=== PATIENT | female | born 1950 | race Two or more races ===

== ENCOUNTER 2017-10-08 17:22 | Observation (INO) | payer SELFPAY ==
--- NOTE | 2017-10-08 17:29 | PDOC ---
Rapid Medical Evaluation Time Seen by Provider: 10/08/17 17:29 Medical Evaluation: 10/08/17 17:29 66 year old female with NIDDM, HTN, and asthma presents with 3 weeks of progressive dyspnea, cough productive of yellow sputum, dizziness, and generalized weakness. V/s notable for SpO2 92% on RA, HR 107. Alert, oriented. Diffuse expiratory wheezing with poor air entry bilaterally. Coughing during exam. RRR, S1/S2. -EKG -CXR -Sepsis labs -DuoNeb -To Main ED for further evaluation
[2017-10-08 17:33] VITALS: BMI 23.4
[2017-10-08] MEDS ORDERED: ALBUTEROL SO4 2.5/IPRATROPIUM 0.5 INH SOL 3 ML VIAL.NEB. NEB ONE ×2 (17:34→19:06)
[2017-10-08 19:21] LABS: BASO % 0.6 % (0-2.0); EOS % 6.3 % (0-4.5); HEMATOCRIT 41.2 % (32.4-45.2); HEMOGLOBIN 13.8 GM/dL (10.7-15.3); LYMPH % 25.3 % (8-40); MCH 30.1 pg (25.7-33.7); MCHC 33.4 g/dl (32.0-36.0); MEAN CELL VOLUME 90.3 fl (80-96); MEAN PLT VOLUME 7.6 fl (7.5-11.1); MONO % 7.4 % (3.8-10.2); NEUT % 60.4 % (42.8-82.8); PLATELET COUNT 269 K/MM3 (134-434); RBC 4.57 M/mm3 (3.60-5.2); RDW 13.6 % (11.6-15.6); WHITE BLOOD COUNT 10.5 K/mm3 (4.0-10.0)
[2017-10-08 19:34] LABS: URINE APPEARANCE CLEAR; URINE BILIRUBIN NEGATIVE (<2.0 mg/dL); URINE COLOR STRAW; URINE GLUCOSE (UA) NEGATIVE (NEGATIVE); URINE KETONE NEGATIVE (NEGATIVE); URINE NITRITE NEGATIVE (NEGATIVE); URINE PROTEIN NEGATIVE (NEGATIVE); URINE UROBILINOGEN NEGATIVE mg/dL (0.2-1.0)
[2017-10-08 19:36] LABS: URINE LEUK ESTERASE 1+ (NEGATIVE)
[2017-10-08 19:38] LABS: EPI CELLS RARE /HPF (FEW)
[2017-10-08 19:47] LABS: PROTHROMBIN TIME (PATIENT) 11.3 SEC (9.7-13.0)
[2017-10-08 19:49] LABS: ACTIVATED PTT 33.7 SECONDS (26.9-34.4)
[2017-10-08 20:02] LABS: ALBUMIN 4.1 g/dl (3.4-5.0); ANION GAP 7 (8-16); BLOOD UREA NITROGEN 8 mg/dL (7-18); CALCIUM 9.2 mg/dL (8.5-10.1); CHLORIDE 104 mmol/L (98-107); CO2 29 mmol/L (21-32); CREATININE 0.6 mg/dL (0.55-1.02); GLUCOSE,RANDOM 112 mg/dL (74-106); SGPT/ALT 24 U/L (12-78); SODIUM 140 mmol/L (136-145)
[2017-10-08 20:04] LABS: ALK PHOS 94 U/L (45-117); BILIRUBIN,TOTAL 0.8 mg/dL (0.2-1.0); TOT PROT 8.1 g/dl (6.4-8.2)
[2017-10-08 20:07] LABS: POTASSIUM 4.1 mmol/L (3.5-5.1); SGOT/AST 19 U/L (15-37)
--- NOTE | 2017-10-08 23:34 | PDOC ---
History of Present Illness <Abdiel Bowman - Last Filed: 10/08/17 23:49> - History of Present Illness Initial Comments: 10/08/17 23:45 The patient is a 66 year old female with a significant PMH of diabetes and HTN ( on Jude 5/20mg)who presents to the emergency department with persistent cough and shortness of breath beginning approximately 2 weeks ago. The patient reports having progressively increasing shortness of breath which is aggravated by cough and with associated dyspnea on exertion such as walking or going up stairs. She also reports associated chest pain and back pain which is aggravated by cough and exertion. They report bringing the patient in today as her shortness of breath has been worsening. The patients daughter states the patient recently arrived from [facility] about 6 weeks ago. The patient denies headache and dizziness. Denies fevers, chills, nausea, vomit, diarrhea, and constipation. Denies dysuria, frequency, urgency, and hematuria. Allergies: NKA Past surgical history: None reported. Social history: No reported cigarette, alcohol, or drug use. PCP: None reported. <Sherry Chamorro - Last Filed: 10/09/17 01:19> - General Chief Complaint: Shortness of Breath Stated Complaint: SHORTNESS OF BREATH Time Seen by Provider: 10/08/17 17:29 Past History <Abdiel Bowman - Last Filed: 10/08/17 23:49> - Suicide/Smoking/Psychosocial Hx Smoking History: Never smoked <Sherry Chamorro - Last Filed: 10/09/17 01:19> - Past Medical History Allergies/Adverse Reactions: Allergies Allergy/AdvReac Type Severity Reaction Status Date / Time No Known Allergies Allergy Verified 10/08/17 17:29 Review of Systems - Review of Systems Comments:: 10/08/17 23:45 GENERAL/CONSTITUTIONAL: No fever or chills. No weakness. HEAD, EYES, EARS, NOSE AND THROAT: No change in vision. No ear pain or discharge. No sore throat. GASTROINTESTINAL: No nausea, vomiting, diarrhea or constipation. GENITOURINARY: No dysuria, frequency, or change in urination. CARDIOVASCULAR: (+) Chest pain. RESPIRATORY: (+) Shortness of breath. (+) Cough. No wheezing, or hemoptysis. MUSCULOSKELETAL: (+) Back pain. No joint pain. No neck pain. SKIN: No rash NEUROLOGIC: No headache, vertigo, loss of consciousness, or change in strength/ sensation. ENDOCRINE: No increased thirst. No abnormal weight change. HEMATOLOGIC/LYMPHATIC: No anemia, easy bleeding, or history of blood clots. ALLERGIC/IMMUNOLOGIC: No hives or skin allergy. <AshtynYomna - Last Filed: 10/09/17 01:19> *Physical Exam - Vital Signs Last Vital Signs Temp Pulse Resp BP Pulse Ox 98.5 F 109 H 20 148/84 94 L 10/08/17 17:29 10/08/17 17:29 10/08/17 17:29 10/08/17 17:29 10/08/17 17:29 <Abdiel Bowman - Last Filed: 10/08/17 23:49> - Vital Signs Last Vital Signs Temp Pulse Resp BP Pulse Ox 98.5 F 109 H 20 148/84 94 L 10/08/17 17:29 10/08/17 17:29 10/08/17 17:29 10/08/17 17:29 10/08/17 17:29 - Physical Exam Comments: 10/08/17 23:45 GENERAL: Awake, alert, and fully oriented, in no acute distress HEAD: No signs of trauma EYES: PERRLA, EOMI, sclera anicteric, conjunctiva clear ENT: Auricles normal inspection, hearing grossly normal, nares patent, oropharynx clear without exudates. Moist mucosa NECK: Normal ROM, supple, no lymphadenopathy, JVD, or masses LUNGS: Breath sounds equal, +course BS, no wheezes, and no crackles HEART: Regular rate and rhythm, normal S1 and S2, no murmurs, rubs or gallops ABDOMEN: Soft, nontender, normoactive bowel sounds. No guarding, no rebound. No masses EXTREMITIES: Normal range of motion, no edema. No clubbing or cyanosis. No cords , erythema, or tenderness BACK: No midline spinal tenderness in cervical/thoracic/lumbar region NEUROLOGICAL: Normal speech, cranial nerves intact, negative pronator drift, 5/ 5 strength in all 4 extremities, normal sensation to light touch in all 4 extremities, normal cerebellar exam, normal gait, normal reflexes and tone SKIN: Warm, Dry, normal turgor, no rashes or lesions noted. <AshtynYomna - Last Filed: 10/09/17 01:19> Moderate Sedation - Procedure Monitoring Vital Signs: Vital Signs Temp Pulse Resp BP Pulse Ox 98.5 F 109 H 20 148/84 94 L 10/08/17 17:29 10/08/17 17:29 10/08/17 17:29 10/08/17 17:29 10/08/17 17:29 <Abdiel Bowman - Last Filed: 10/08/17 23:49> - Procedure Monitoring Vital Signs: Vital Signs Temp Pulse Resp BP Pulse Ox 98.5 F 109 H 20 148/84 94 L 10/08/17 17:29 10/08/17 17:29 10/08/17 17:29 10/08/17 17:29 10/08/17 17:29 <Sherry Chamorro - Last Filed: 10/09/17 01:19> ED Treatment Course - LABORATORY CBC & Chemistry Diagram: 10/08/17 19:02 10/08/17 19:02 - ADDITIONAL ORDERS Additional order review: Laboratory Results 10/08/17 10/08/17 10/08/17 19:15 19:02 19:02 PT with INR INR PTT (Actin FS) Sodium Potassium Chloride Carbon Dioxide Anion Gap BUN Creatinine Creat Clearance w eGFR Random Glucose Lactic Acid 1.2 Calcium Total Bilirubin AST ALT Alkaline Phosphatase Troponin I < 0.02 Total Protein Albumin Urine Color Straw Urine Appearance Clear Urine pH 8.0 Ur Specific [place] 1.008 Urine Protein Negative Urine Glucose (UA) Negative Urine Ketones Negative Urine Blood Negative Urine Nitrite Negative Urine Bilirubin Negative Urine Urobilinogen Negative Ur Leukocyte Esterase 1+ H Urine WBC (Auto) 2 Urine RBC (Auto) <1 Ur Epithelial Cells Rare 10/08/17 10/08/17 19:02 19:02 PT with INR 11.30 INR 1.00 PTT (Actin FS) 33.7 Sodium 140 Potassium 4.1 Chloride 104 Carbon Dioxide 29 Anion Gap 7 L BUN 8 Creatinine 0.6 Creat Clearance w eGFR > 60 Random Glucose 112 H Lactic Acid Calcium 9.2 Total Bilirubin 0.8 AST 19 ALT 24 Alkaline Phosphatase 94 Troponin I Total Protein 8.1 Albumin 4.1 Urine Color Urine Appearance Urine pH Ur Specific [place] Urine Protein Urine Glucose (UA) Urine Ketones Urine Blood Urine Nitrite Urine Bilirubin Urine Urobilinogen Ur Leukocyte Esterase Urine WBC (Auto) Urine RBC (Auto) Ur Epithelial Cells 10/08/17 19:02 RBC 4.57 MCV 90.3 MCHC 33.4 RDW 13.6 MPV 7.6 Neutrophils % 60.4 Lymphocytes % 25.3 Monocytes % 7.4 Eosinophils % 6.3 H Basophils % 0.6 - Medications Given in the ED: ED Medications Discontinued Medications Generic Name Dose Route Start Last Admin Trade Name Freq PRN Reason Stop Dose Admin Albuterol/Ipratropium 1 amp 10/08/17 17:34 10/08/17 19:15 Duoneb - NEB 10/08/17 17:35 1 amp ONCE ONE Administration <Abdiel Bowman - Last Filed: 10/08/17 23:49> - LABORATORY CBC & Chemistry Diagram: 10/08/17 19:02 10/08/17 19:02 - ADDITIONAL ORDERS Additional order review: Laboratory Results 10/08/17 10/08/17 10/08/17 19:15 19:02 19:02 PT with INR INR PTT (Actin FS) Sodium Potassium Chloride Carbon Dioxide Anion Gap BUN Creatinine Creat Clearance w eGFR Random Glucose Lactic Acid 1.2 Calcium Total Bilirubin AST ALT Alkaline Phosphatase Troponin I < 0.02 Total Protein Albumin Urine Color Straw Urine Appearance Clear Urine pH 8.0 Ur Specific [place] 1.008 Urine Protein Negative Urine Glucose (UA) Negative Urine Ketones Negative Urine Blood Negative Urine Nitrite Negative Urine Bilirubin Negative Urine Urobilinogen Negative Ur Leukocyte Esterase 1+ H Urine WBC (Auto) 2 Urine RBC (Auto) <1 Ur Epithelial Cells Rare 10/08/17 10/08/17 19:02 19:02 PT with INR 11.30 INR 1.00 PTT (Actin FS) 33.7 Sodium 140 Potassium 4.1 Chloride 104 Carbon Dioxide 29 Anion Gap 7 L BUN 8 Creatinine 0.6 Creat Clearance w eGFR > 60 Random Glucose 112 H Lactic Acid Calcium 9.2 Total Bilirubin 0.8 AST 19 ALT 24 Alkaline Phosphatase 94 Troponin I Total Protein 8.1 Albumin 4.1 Urine Color Urine Appearance Urine pH Ur Specific [place] Urine Protein Urine Glucose (UA) Urine Ketones Urine Blood Urine Nitrite Urine Bilirubin Urine Urobilinogen Ur Leukocyte Esterase Urine WBC (Auto) Urine RBC (Auto) Ur Epithelial Cells 10/08/17 19:02 RBC 4.57 MCV 90.3 MCHC 33.4 RDW 13.6 MPV 7.6 Neutrophils % 60.4 Lymphocytes % 25.3 Monocytes % 7.4 Eosinophils % 6.3 H Basophils % 0.6 - Medications Given in the ED: ED Medications Discontinued Medications Generic Name Dose Route Start Last Admin Trade Name Benjamin PRN Reason Stop Dose Admin Albuterol/Ipratropium 1 amp 10/08/17 17:34 10/08/17 19:15 Duoneb - NEB 10/08/17 17:35 1 amp ONCE ONE Administration <Sherry Chamorro - Last Filed: 10/09/17 01:19> Medical Decision Making - Medical Decision Making 10/08/17 23:40 66yo F hx asthma, HTN, DM presents with progressive sob, scott, chest pain for 2 weeks, worse today. Pt initially was wheezing per E provider, on my exam, no wheezing but some course BS. Vitals with tachycardia, some hypoxia. Pt continues to c/o sob and CP despite neb. Thus far trop neg, remainder labs neg, but dimer, bnp, vbg, xr pending. Will redose nebs, give steroids and reassess. Given prolonged LOS, will ED obs pt. 10/09/17 01:15 dimer, trop, bnp, vbg pending. Pt signed out to hospitalist as LOS >8hrs Case discussed in detail with admitting physician including history, physical exam and ancillary studies. Admitting physician has assumed care for the patient, will follow all pending diagnostics and will complete the evaluation and treatment. <Sherry Chamorro - Last Filed: 10/09/17 01:19> *DC/Admit/Observation/Transfer - Attestations Scribe Attestion: 10/08/17 23:49 Documentation prepared by Abdiel Bowman, acting as medical office professional instructor for Sherry Chamorro MD. <Abdiel Bowman - Last Filed: 10/08/17 23:49> - Discharge Dispostion Decision to Admit order: Yes - Attestations Physician Attestion: 10/09/17 01:19 I, Dr. Sherry Chamorro MD, attest that this document has been prepared under my direction and personally reviewed by me in its entirety. I further attest, that it accurately reflects all work, treatment, procedures and medical decision -making performed by me. <Sherry Chamorro - Last Filed: 10/09/17 01:19> Diagnosis at time of Disposition: Shortness of breath - Discharge Dispostion Condition at time of disposition: Stable
[2017-10-08] MEDS ORDERED: predniSONE 20 MG TABLET (UD) PO ONE (23:36)
--- NOTE | 2017-10-09 01:12 | PN ---
Teaching Attending Note Name of Resident: Lissette Nixon ATTENDING PHYSICIAN STATEMENT I saw and evaluated the patient. I reviewed the resident's note and discussed the case with the resident. I agree with the resident's findings and plan as documented. SUBJECTIVE: Patient is a 66 year old woman with the chief complaint of SOB and cough for 2 weeks. She recently came from [facility]. Has PMH of diabetes and HTN (on Jude 5/20mg). The patient reports having progressively increasing shortness of breath which is aggravated by cough and with associated dyspnea on exertion such as walking or going up stairs. She also reports associated chest pain and back pain which is aggravated by cough and exertion. On arrival in the ER she was treated with bronchodilators and steroids fro asthma exacerbation and kept to rule out Pulmonary embolism. OBJECTIVE: Alert and in no acute respiratory distress. Obese. Vital Signs Period Temp Pulse Resp BP Sys/Berkowitz Pulse Ox Last 24 Hr 98.5 F 109 20 148/84 94 HEENT: No Jaundice, eye redness or discharge, PERRLA, EOMI. External ears are normal and hearing is grossly intact. No nasal discharge. Neck: Supple, nontender. No palpable adenopathy or thyromegaly. No JVD Chest: Good effort. No wheezing. Clear to auscultation and percussion. Heart: Regular. No S3, rub or murmur Abdomen: Not distended, soft, nontender and no HSM. No rebound or guarding. Normoactive bowel sounds. Ext: Peripheral pulses intact. No leg edema. No calf tenderness. Skin: Warm and dry. No petechiae, rash or ecchymosis. Neuro: Alert. Oriented x3. CN 2-12 grossly intact. Sensation grossly intact in all four extremities and DTR are symmetric. Laboratory Results - last 24 hr 10/08/17 10/08/17 10/08/17 19:02 19:02 19:02 WBC 10.5 H RBC 4.57 Hgb 13.8 Hct 41.2 MCV 90.3 MCH 30.1 MCHC 33.4 RDW 13.6 Plt Count 269 MPV 7.6 Neutrophils % 60.4 Lymphocytes % 25.3 Monocytes % 7.4 Eosinophils % 6.3 H Basophils % 0.6 Nucleated RBC % 0 PT with INR 11.30 INR 1.00 PTT (Actin FS) 33.7 Sodium 140 Potassium 4.1 Chloride 104 Carbon Dioxide 29 Anion Gap 7 L BUN 8 Creatinine 0.6 Creat Clearance w eGFR > 60 Random Glucose 112 H Lactic Acid Calcium 9.2 Total Bilirubin 0.8 AST 19 ALT 24 Alkaline Phosphatase 94 Troponin I Total Protein 8.1 Albumin 4.1 Urine Color Urine Appearance Urine pH Ur Specific [place] Urine Protein Urine Glucose (UA) Urine Ketones Urine Blood Urine Nitrite Urine Bilirubin Urine Urobilinogen Ur Leukocyte Esterase Urine WBC (Auto) Urine RBC (Auto) Ur Epithelial Cells 10/08/17 10/08/17 10/08/17 19:02 19:02 19:15 WBC RBC Hgb Hct MCV MCH MCHC RDW Plt Count MPV Neutrophils % Lymphocytes % Monocytes % Eosinophils % Basophils % Nucleated RBC % PT with INR INR PTT (Actin FS) Sodium Potassium Chloride Carbon Dioxide Anion Gap BUN Creatinine Creat Clearance w eGFR Random Glucose Lactic Acid 1.2 Calcium Total Bilirubin AST ALT Alkaline Phosphatase Troponin I < 0.02 Total Protein Albumin Urine Color Straw Urine Appearance Clear Urine pH 8.0 Ur Specific [place] 1.008 Urine Protein Negative Urine Glucose (UA) Negative Urine Ketones Negative Urine Blood Negative Urine Nitrite Negative Urine Bilirubin Negative Urine Urobilinogen Negative Ur Leukocyte Esterase 1+ H Urine WBC (Auto) 2 Urine RBC (Auto) <1 Ur Epithelial Cells Rare ASSESSMENT AND PLAN: 1. Rule out PE - [place] concern is whether she has PE or chest infection in view of her recent trip to [facility]. CXR does not show any significant infiltrate. D-dimer and ABG pending. Will get CTPA. 2. HTn - Treat with amlodipine and losartan. 3. DM - Will do sliding scale insulin coverage and get HBA1c 4. DVT prophylaxis - Heparin 5000u sq tid 5. Advance directives - Full code
--- NOTE | 2017-10-09 01:36 | HP ---
CHIEF COMPLAINT: shortness of breath PCP: none HISTORY OF PRESENT ILLNESS: 66yo Vietnamese speaking woman from [facility] with PMH of HTN and DM who presents to the ED with sob and progressively worse non-productive cough for the past 2 weeks. She recently arrived from [facility] about 6 weeks ago. For the past two weeks she has had worsening sob with exertion. Also endorses chest pain that is aggravated by her coughing. Denies fever, chills, nausea, vomiting. No dysuria, hematuria, frequency, or urgency. ED course was notable for: (1) VS: 98.5, HR 109, BP 148.84, RR 20, pSaO2 94% on RA (2) s/p 1x Duo Neb and Prednisone 60mg PO (3) D-Dimer 404 Recent Travel: came to [place] from [facility] in August 2016 PAST MEDICAL HISTORY: see HPI PAST SURGICAL HISTORY: none Social History: Smoking:never Alcohol: none Drugs: none Family History: Allergies: No Known Allergies Allergy (Verified 10/08/17 17:29) HOME MEDICATIONS: none REVIEW OF SYSTEMS CONSTITUTIONAL: Absent: fever, chills, diaphoresis, generalized weakness, malaise, loss of appetite, weight change HEENT: Absent: rhinorrhea, nasal congestion, throat pain, throat swelling, difficulty swallowing, mouth swelling, ear pain, eye pain, visual changes CARDIOVASCULAR: +chest pain Absent: , syncope, palpitations, irregular heart rate, lightheadedness, peripheral edema RESPIRATORY: +cough, shortness of breath, dyspnea with exertion Absent: orthopnea, wheezing, stridor, hemoptysis GASTROINTESTINAL: Absent: abdominal pain, abdominal distension, nausea, vomiting, diarrhea, constipation, melena, hematochezia GENITOURINARY: Absent: dysuria, frequency, urgency, hesitancy, hematuria, flank pain, genital pain MUSCULOSKELETAL: Absent: myalgia, arthralgia, joint swelling, back pain, neck pain SKIN: Absent: rash, itching, pallor HEMATOLOGIC/IMMUNOLOGIC: Absent: easy bleeding, easy bruising, lymphadenopathy, frequent infections ENDOCRINE: Absent: unexplained weight gain, unexplained weight loss, heat intolerance, cold intolerance NEUROLOGIC: Absent: headache, focal weakness or paresthesias, dizziness, unsteady gait, seizure, mental status changes, bladder or bowel incontinence PSYCHIATRIC: Absent: anxiety, depression, suicidal or homicidal ideation, hallucinations. PHYSICAL EXAMINATION Vital Signs - 24 hr 10/08/17 17:29 Temperature 98.5 F Pulse Rate 109 H Respiratory 20 Rate Blood Pressure 148/84 O2 Sat by Pulse 94 L Oximetry (%) GENERAL: aaox3, nad, without conversational dyspnea HEENT: PERRL, EOMI, sclera anicteric, conjunctiva clear, oropharynx clear without exudates, mmm NECK: supple, no cervical LAD LUNGS: good +airway entry, no wheezing/rales/rhonchi, no accessory muscle use HEART: RRR, normal s1/s2 ABDOMEN: soft, obese, NTND UPPER EXTREMITIES: 2+ radial pulses, wwp, no edema LOWER EXTREMITIES: 2+ DP pulses, wwp, no edema NEUROLOGICAL: Cranial nerves II-XII grossly intact, but normally tested, normal speech, normal gait CBC, BMP 10/08/17 19:02 10/08/17 19:02 Hepatic Panel Total Bilirubin 0.8 mg/dL (0.2-1.0) 10/08/17 19:02 AST 19 U/L (15-37) 10/08/17 19: ALT 24 U/L (12-78) 10/08/17 19:02 Alkaline Phosphatase 94 U/L (45-117) 10/08/17 19:02 Albumin 4.1 g/dl (3.4-5.0) 10/08/17 19:02 Troponin, BNP 10/08/17 10/09/17 10/09/17 19:02 00:35 00:35 Troponin I < 0.02 < 0.02 B-Natriuretic Peptide 16.81 ABG Results ABG pH 7.38 (7.35-7.45) 10/09/17 00:35 ABG pCO2 at Pt Temp 52.4 mmHg (35-45) H 10/09/17 00:35 ABG pO2 at Pt Temp 26.5 mmHg (80-100) L* 10/09/17 00:35 ABG HCO3 30.1 meq/L (22-26) H 10/09/17 00:35 ABG O2 Sat (Measured) 42.2 % (90-98.9) L* 10/09/17 00:35 ABG O2 Content 8.6 % vol (15-22) L* 10/09/17 00:35 ABG Base Excess 4.2 meq/l (-2-2) H 10/09/17 00:35 Urine Test Results Urine Color Straw 10/08/17 19:15 Urine Appearance Clear 10/08/17 19:15 Urine pH 8.0 (5.0-8.0) 10/08/17 19:15 Ur Specific [place] 1.008 (1.001-1.035) 10/08/17 19:15 Urine Protein Negative (NEGATIVE) 10/08/17 19:15 Urine Glucose (UA) Negative (NEGATIVE) 10/08/17 19:15 Urine Ketones Negative (NEGATIVE) 10/08/17 19:15 Urine Blood Negative (NEGATIVE) 10/08/17 19:15 Urine Nitrite Negative (NEGATIVE) 10/08/17 19:15 Urine Bilirubin Negative (<2.0 mg/dL) 10/08/17 19:15 Ur Leukocyte Esterase 1+ (NEGATIVE) H 10/08/17 19:15 Ur Epithelial Cells Rare /HPF (FEW) 10/08/17 19:15 EKG: normal sinus with sinus arrhythmia, rate 83, QTc 432 CXR preliminary read: no focal consolidations or pleural effusions, ? hyperinflated lung ramirez bilaterally ASSESSMENT/PLAN: 66yo Vietnamese-speaking woman from [facility] who presents with 2wks x worsening sob, non-productive cough, and exertional chest pain. #acute hypercapneic hypoxic respiratory distress, DDX: asthma exacerbation (sx improved with steroids/neb, CXR lungs mildly hyperinflated) vs PE (recent prolonged travel) vs infectious process -CTA to r/o PE vs infection -Duo nebs Q4H PRN for sob -Short course Prednisone 60mg PO x 4days -sputum culture -f/u blood cultures #chest pain, likely muscoskeletal in origin, less likely cardiac, however given RF will r/o ACS -Serial Trops/EKG - Trop neg x 2. will stop trending if 3rd trop is negative #HTN - start on amlodipine 2.5mg PO qd and Losartan 50mg qd #DM - BGM/ISS ACHS #FEN NS@83cc/hr before and after contrast exposure lytes wnl DM/Na controlled diet #PPX DVT - HSQ Q8H #DISPO: tele obs FULL code d/w Dr. Leslie Nixon MD PGY1 - Internal Medicine, Night Cushion Padder Visit type - Emergency Visit Emergency Visit: Yes ED Registration Date: 10/08/17 Care time: The patient presented to the Emergency Department on the above date and was hospitalized for further evaluation of their emergent condition. - New Patient This patient is new to me today: Yes Date on this admission: 10/09/17 - Critical Care Critical Care patient: No Hospitalist Screening - Colonoscopy Questionnaire Colonoscopy Questionnaire: Colonoscopy Questionnaire - Patient: 50 - 75 years old and never had a screening colonoscopy: Unknown History of colon or rectal polyps, or CA: Unknown History of IBD, Crohn's disease or UC: Unknown History of abdominal radiation therapy as a child: Unknown - Relative: 1 with colon or rectal CA, or polyps at age 60 or younger: Unknown Colon or rectal CA diagnosed at age 45 or younger: Unknown Multiple relatives with colon or rectal CA: Unknown - Outcome: Screening Result: Negative Screen
[2017-10-09 01:44] LABS: ARTERIAL BLOOD GAS BASE EXCESS 4.2 meq/l (-2-2); ARTERIAL BLOOD GAS PCO2 52.4 mmHg (35-45); ARTERIAL BLOOD GAS pH 7.38 (7.35-7.45)
[2017-10-09 01:57] LABS: ARTERIAL BLD GAS O2 SATURATION 42.2 % (90-98.9); ARTERIAL BLOOD GAS PO2 26.5 mmHg (80-100)
[2017-10-09] MEDS ORDERED: ALBUTEROL SO4 2.5/IPRATROPIUM 0.5 INH SOL 3 ML VIAL.NEB. NEB PRN (02:06)
[2017-10-09] MEDS ORDERED: SODIUM CHLORIDE 1,000 ML IV SCH (02:15)
[2017-10-09] MEDS ORDERED: predniSONE 20 MG TABLET (UD) ONE (04:45)
[2017-10-09] MEDS ORDERED: HEPARIN NA (PORCINE) 5,000 UNITS/ML 1ML VIAL ONE (06:36)
[2017-10-09] MEDS: HEPARIN NA (PORCINE) 5,000 UNITS/ML 1ML VIAL SQ SCH ×2 (06:39→15:22)
[2017-10-09] MEDS: INSULIN SLIDING SCALE (NOVOLOG) 1 VIAL SQ SCH ×2 (08:14→11:55)
[2017-10-09 08:17] VITALS: TEMP 98.3
[2017-10-09 08:32] LABS: BASO % 0.9 % (0-2.0); EOS % 4.9 % (0-4.5); HEMATOCRIT 38.8 % (32.4-45.2); HEMOGLOBIN 13.2 GM/dL (10.7-15.3); LYMPH % 18.4 % (8-40); MCH 30.7 pg (25.7-33.7); MEAN CELL VOLUME 90.1 fl (80-96); MEAN PLT VOLUME 7.9 fl (7.5-11.1); MONO % 3.1 % (3.8-10.2); NEUT % 72.7 % (42.8-82.8); PLATELET COUNT 245 K/MM3 (134-434); RDW 13.4 % (11.6-15.6); WHITE BLOOD COUNT 6.2 K/mm3 (4.0-10.0)
[2017-10-09 09:04] LABS: CHLORIDE 105 mmol/L (98-107); SODIUM 140 mmol/L (136-145)
[2017-10-09] MEDS ORDERED: amLODIPine BESYLATE 2.5 MG TABLET (FP) PO SCH (10:00)
[2017-10-09] MEDS ORDERED: predniSONE 20 MG TABLET (UD) PO SCH (10:00)
[2017-10-09] MEDS ORDERED: LOSARTAN POTASSIUM 50 MG TABLET (FP) PO SCH (10:00)
[2017-10-09] MEDS ORDERED: predniSONE 20 MG TABLET (UD) PO ONE (10:00)
[2017-10-09 10:32] LABS: ALK PHOS 89 U/L (45-117); ANION GAP 8 (8-16); BILIRUBIN,TOTAL 1.1 mg/dL (0.2-1.0); BLOOD UREA NITROGEN 8 mg/dL (7-18); CALCIUM 9.3 mg/dL (8.5-10.1); CO2 27 mmol/L (21-32); CREATININE 0.5 mg/dL (0.55-1.02); GLUCOSE,RANDOM 137 mg/dL (74-106); SGOT/AST 14 U/L (15-37); SGPT/ALT 20 U/L (12-78); TOT PROT 7.6 g/dl (6.4-8.2)
[2017-10-09] MEDS ORDERED: INSULIN (NOVOLOG) ASPART 100 UNITS/ML 10ML VIAL ONE (12:00)
--- NOTE | 2017-10-09 13:31 | PN ---
Teaching Attending Note Name of Resident: Abigail Reid ATTENDING PHYSICIAN STATEMENT I saw and evaluated the patient. I reviewed the resident's note and discussed the case with the resident. I agree with the resident's findings and plan as documented. SUBJECTIVE: NO fever or chills, feels better but cont to have OSB OBJECTIVE: NAD Cv : RRR Lungs: wheezes and prolonged expiratory phase Abd: soft, NT, ND , NL BS Ext : no edema ASSESSMENT AND PLAN: 66 y/o lady with h/o Asthma , HTN, and DM who presented with SOB and was found to have mildly low Sat O2. 1- SOB: due to acute asthma exacerbation . No PE , NO PNA - prednisone - Nebs - add advair 2- Dm , SSI now - will confirm home meds 3- HTN: cont losartan and norvasc hydration till tomorrow to protect kidneys after CTA 4- DVT Px: heparin sq
[2017-10-09 15:55] VITALS: BP 116/74; PULSE 111
[2017-10-09] MEDS ORDERED: ALBUTEROL SO4 2.5/IPRATROPIUM 0.5 INH SOL 3 ML VIAL.NEB. NEB SCH (16:00)
--- NOTE | 2017-10-09 16:14 | EKG ---
Test Reason : Blood Pressure : / mmHG Vent. Rate : 083 BPM Atrial Rate : 083 BPM P-R Int : 178 ms QRS Dur : 084 ms QT Int : 368 ms P-R-T Axes : 046 069 045 degrees QTc Int : 432 ms NORMAL SINUS RHYTHM WITH SINUS ARRHYTHMIA NORMAL ECG NO PREVIOUS ECGS AVAILABLE Confirmed by MD Adams, Jann ([id number]) on 10/09/2017 4:14:33 PM Referred By: Confirmed By:Jann Lamas MD
[2017-10-09] MEDS ORDERED: INSULIN SLIDING SCALE (NOVOLOG) 1 VIAL SQ SCH (16:30)
--- NOTE | 2017-10-09 21:15 | DS ---
Physical Exam: SUBJECTIVE: Patient seen and examined at bedside. Today, states that she no longer feels as if her "lungs are collapsing." Sx alleviated with steroids, nebs. Hopes to go home. Granddaughter at bedside. Denies [place], fever, chills, cough, SOB, chest pain or pressure, or changes in urinary or bowel function. OBJECTIVE: Vital Signs Period Temp Pulse Resp BP Sys/Berkowitz Pulse Ox Last 24 Hr 98.3 F 89-111 22-24 116-160/74-90 95-99 PHYSICAL EXAM GENERAL: Pleasant female, sitting up in bed. awake, alert, and fully oriented, in no acute distress. on 2L NC HEAD: Normal with no signs of trauma. EYES: PERRL, extraocular movements intact, sclera anicteric, conjunctiva clear. ENT: Ears normal, nares patent, oropharynx clear without exudates, moist mucous membranes. NECK: Trachea midline, full range of motion, supple. LUNGS: Breath sounds equal, clear to auscultation bilaterally, no wheezes, no crackles, no accessory muscle use. HEART: Regular rate and rhythm, S1, S2 without murmur, rub or gallop. ABDOMEN: Soft, nontender, nondistended, normoactive bowel sounds, no guarding, no rebound EXTREMITIES: 2+ dp, pt pulses, warm, well-perfused, no edema. NEUROLOGICAL: Cranial nerves II through XII grossly intact. Normal speech PSYCH: Normal mood, normal affect. SKIN: Warm, dry, normal turgor, no rashes or lesions noted. LABS 10/08/17 10/08/17 10/08/17 19:02 19:02 19:02 WBC 10.5 H Hgb 13.8 Hct 41.2 Plt Count 269 Random Glucose 112 H Troponin I < 0.02 10/08/17 10/09/17 10/09/17 19:15 00:35 00:35 ABG pH 7.38 ABG pCO2 at Pt Temp 52.4 H ABG pO2 at Pt Temp 26.5 L* ABG HCO3 30.1 H ABG O2 Sat (Measured) 42.2 L* ABG O2 Content 8.6 L* ABG Base Excess 4.2 H B-Natriuretic Peptide 16.81 Ur Leukocyte Esterase 1+ H Urine WBC (Auto) 2 10/09/17 10/09/1718 00:35 07:18 07:18 WBC 6.2 D Hgb 13.2 Hct 38.8 Plt Count 245 Random Glucose 137 H Troponin I < 0.02 10/09/17 10/09/17 07:18 07:18 Hemoglobin A1c % 6.5 H Troponin I < 0.02 Microbiology 10/08/17 19:02 Blood - Peripheral Venous Blood Culture - Preliminary NO GROWTH OBTAINED AFTER 24 HOURS, INCUBATION TO CONTINUE FOR 4 DAYS. 10/08/17 19:02 Blood - Peripheral Venous Blood Culture - Preliminary NO GROWTH OBTAINED AFTER 24 HOURS, INCUBATION TO CONTINUE FOR 4 DAYS. Imaging 10/09/17: CXR: no evidence of pneumonia, atelectasis, or CHF. No pleural effusion or pneumothorax is seen. 10/10/17: CTA: there is no evidence of a pulmonary embolus within the main pulmonary artery and its proximal branches, bilaterally. Minimal atelectatic changes in the lingular segment of the GEOVANNI. The rest of the lung is clear without gross evidene of focal infiltrates. HOSPITAL COURSE: Date of Admission:10/08/17 Date of Discharge: 10/09/17 Admit diagnosis: acute hypercapnic hypoxic respiratory failure r/o PE 66 y/o English speaking F from [facility] with PMH of HTN and DM who presents to the ED with SOB and progressively worsening non-productive cough for the past two weeks. She recently arrived from [facility] six weeks ago. For the past two weeks, she has had worsening SOB with exertion, as well as chest pain that is aggravated by cough. Pt admitted for acute hypercapnic hypoxic resp failure, r/o PE. While pt was in the ED, she was mildly tachycardic to 109, with 02 sat 94% on RA. Pt's D-dimer was elevated to 404, and d/t recent travel and tachycardia, as well as hypercapnia (52.4), hypoxia (42.2) o ABG, pt was r/ o for PE via CTA - as it was negative for any emboli. Pt sx improved with a doses of prednisone 60 mg and 40mg PO, and duonebs. Upon dc, pt feeling well, without need to use NC 02 and satting well into high 90's. Blood cx were also found to be negative during stay. Pt discharge on ventolin PRN, symbicort PO BID , and prednisone taper. While in the hospital, her A1c was also found to be 6.5, so she is also being d/ c on metformin 500mg PO qd. She will f/u in a week with either her primary care doctor in [facility] or Dr. Fragoso in the [facility] clinic. Minutes to complete discharge: 39 Discharge Summary Reason For Visit: SHORTNESS OF BREATH, CHEST PAIN Condition: Improved - Instructions Diet, Activity, Other Instructions: You were in the hospital since you had difficulty breathing. While you were here, you had a scan to check for a clot in your lungs, which was negative. You also were treated with steroids and treatments to open up your airways and lungs. While you were here, you were also found to have a HbA1c (level that checks your sugars over the past three months), which was elevated. This means you are diabetic. You have asthma exacerbation We are sending you home on the following medications. They are being sent to [facility] in [place], [place]: -albuterol (ventolin) - please take one puff only when you feel short of breath -symbicort - 1 puff twice a day, every day. -Prednisone (steroid) taper: -please take 40 mg (4 pills of 10mg) for three days starting tomorrow (10/10, 10/11, 10/12) -then 30mg (3 pills of 10mg) for the next three days 10/13, 10/14, 10/15 - then 20mg (2 pills of 10mg) for the next three days 10/16, 10/17, 10/18 - then 10 mg (1 pill) each day for the last three days 10/19, 10/20, 10/21 -metformin 500mg (1 capsule) daily - this is for your diabetes. You may resume your home medications. Please drink lots of fluids to flush out the contrast you had for your scan. Please follow up with your primary care doctor in a week. You can see a doctor in [facility], or you can see Dr. Fragoso in our clinic in 1 week. If you develop shortness of breath, or chest pain, please go to the hospital. We hope you feel better soon. Referrals: Jono Fragoso MD [Staff Physician] - 1 Week Disposition: HOME - Home Medications Comprehensive Discharge Medication List: Ambulatory Orders Albuterol Sulfate Inhaler - [Ventolin Hfa Inhaler -] 1 - 2 inh PO Q4H PRN #1 inhaler 10/09/17 Amlodipine Bes/Olmesartan Med [Amlodipine-Olmesartan 5-20 mg] 1 each PO ASDIR Budesonide/Formeterol Fumarate [SYMBICORT 160/4.5mcg -] 1 inh PO BID #1 cannister 10/09/17 Metformin HCl [Metformin HCl ER] 500 mg PO DAILY #30 tab.er.24 10/09/17 predniSONE [Deltasone -] 10 mg PO DAILY #30 tablet 10/09/17 This patient is new to me today: Yes Date on this admission: 10/09/17 Emergency Visit: No Critical Care patient: No - Discharge Referral Referred to [facility] No
[2017-10-09] MEDS ORDERED: FLUTICASONE/SALMETEROL 100 MCG/50 MCG DISKUS IH SCH (22:00)
== END 2017-10-09 15:50 | disposition home or self-care (01) ==
LOC: JER 17:22 → JERBED 23:37
PROVIDERS: ADMIT Internal Medicine; ATTEND Internal Medicine
PROC: 3E0337Z Introduction of Electrolytic and Water Balance Substance into Peripheral Vein, Percutaneous Approach (ICD-10-PCS; principal; 2017-10-08)
PROC: 3E013VG Introduction of Insulin into Subcutaneous Tissue, Percutaneous Approach (ICD-10-PCS; 2017-10-08)
PROC: 3E0F7GC Introduction of Other Therapeutic Substance into Respiratory Tract, Via Natural or Artificial Opening (ICD-10-PCS; 2017-10-08)
DX: J45.901 Unspecified asthma with (acute) exacerbation (principal); R06.02 Shortness of breath; R07.89 Other chest pain; I10 Essential (primary) hypertension; E11.9 Type 2 diabetes mellitus without complications
CPT/HCPCS: 36415; 36600; 71046-TC-FY; 71275-TC; 80053; 81003; 81015; 82550; 82803; 82962; 83036; 83605; 83880; 84484; 85025; 85379; 85610; 85730; 87040; 87086; 93005; 93010; 99283-25; G0378; J1644; J7030; J7620